=== PATIENT | female | born 1940 | race Caucasian/White ===

== ENCOUNTER 2021-11-17 08:12 | Day surgery (SDC) | payer MEDICARE ==
[2021-11-15 16:47] VITALS: BMI 32.0
--- NOTE | 2021-11-16 12:12 | P.HPOR ---
History of Present Illness H&P Date: 11/16/21 Chief Complaint: Left knee pain The patient is an 81-year-old female who presents with left knee pain after an injury 10/01/2021. She is having persistent medial and anterior pain with any weightbearing activities. She's been limping and notes her knee feels unstable. She tried medications in addition to a previous injection without much relief. Review of Systems As per HPI Past Medical History Past Medical History: Cancer, CVA/TIA, Hypertension, Osteoarthritis (OA) Additional Past Medical History / Comment(s): steroid injection August 2021,hx CVA 2016-NO RESIDUAL,breast CA-radiation History of Any Multi-Drug Resistant Organisms: None Reported Past Surgical History: Breast Surgery Additional Past Surgical History / Comment(s): lt breast lumpectomy,lt mastectomy Past Anesthesia/Blood Transfusion Reactions: No Reported Reaction Additional Past Anesthesia/Blood Transfusion Reaction / Comment(s): no hx blood transfusion Smoking Status: Never smoker - Past Family History Mother Family Medical History: No Reported History Father Family Medical History: Cancer Additional Family Medical History / Comment(s): lung Medications and Allergies Home Medications Medication Instructions Recorded Confirmed Type ALPRAZolam [Xanax] 2 mg PO HS 11/15/21 11/15/21 History Acetaminophen [Tylenol Extra 500 - 1,000 mg PO Q6H PRN 11/15/21 11/15/21 History Strength] Ascorbic Acid [Vitamin C] 1,000 mg PO DAILY 11/15/21 11/15/21 History Calcium Carbonate [Calcium] 1,200 mg PO DAILY 11/15/21 11/15/21 History Cholecalciferol [Vitamin D3 (25 100 mcg PO DAILY 11/15/21 11/15/21 History Mcg = 1000 Iu)] Clopidogrel [Plavix] 75 mg PO DAILY 11/15/21 11/15/21 History Cyanocobalamin (Vitamin B-12) 1,000 mcg PO DAILY 11/15/21 11/15/21 History [Vitamin B-12] Lisinopril-Hctz 10-12.5 mg 1 tab PO QAM 11/15/21 11/15/21 History [Zestoretic 10-12.5] Mirabegron [Myrbetriq] 50 mg PO HS 11/15/21 11/15/21 History Pravastatin Sodium [Pravachol] 10 mg PO HS 11/15/21 11/15/21 History Vitamin E (Dl,Tocopheryl Acet) 400 unit PO DAILY 11/15/21 11/15/21 History [Vitamin E (400 Iu = 180 mg)] atenoloL [Tenormin] 50 mg PO QAM 11/15/21 11/15/21 History Allergies Allergy/AdvReac Type Severity Reaction Status Date / Time adhesive tape Allergy tears Verified 11/15/21 17:23 skin-Please use paper tape Physical Examination - Knee left Effusion grade: grade 1 Tenderness with palpation: medial Gait: limping ROM: extension: -10 degrees ROM: flexion: 100 degrees Strength: extension: 5/5 Strength: flexion: 5/5 Meniscal tests: medial meniscal tests: positive Results The patient is a well-developed well-nourished female with proximal a 5 foot 2, 175 pounds of endomorphic habitus. HEENT exam is nonfocal, neck is supple. She has painless passive motion of her left hip. Straight leg raise is negative. Her distal neurovascular status appears intact left lower extremity. - Diagnostic results Knee MRI: image reviewed (MRI of the left knee shows evidence of a posterior medial meniscal tear) Assessment and Plan Assessment: Left knee symptomatic medial meniscal tear Left knee moderate medial compartment osteoarthrosis History of TIA on anticoagulation Plan: I talked with the patient length regarding her condition along with treatment options. At this point she is having pain and mechanical symptoms despite conservative measures after an acute injury. After thorough discussion shaft proceed with surgery. We'll plan to proceed with left knee arthroscopy with probable partial medial meniscectomy. We will likely perform that as an outpatient procedure. We will likely reinstitute her Plavix postoperatively. Time with Patient: Less than 30
[~2021-11-17 08:12] MED LIST: DEXAMETHASONE SOD PHOSPHATE 4 MG/ML 1 ML VIAL IV ONE; LACTATED RINGERS 1,000 ML IV SCH; MIDAZOLAM 2 MG/2 ML VIAL IV PRN; ONDANSETRON 4 MG/2 ML VIAL IVP ONE
[2021-11-17] MEDS ORDERED: fentaNYL (PF) 50 MCG/ML 2 ML AMP ONE (09:21)
[2021-11-17] MEDS ORDERED: LIDOCAINE 2% INJ 20 MG/ML (2 ML VIAL) ONE (09:21)
[2021-11-17] MEDS ORDERED: GLYCOPYRROLATE 0.2 MG/ML 2 ML VIAL ONE (09:21)
[2021-11-17] MEDS ORDERED: PROPOFOL 10 MG/ML 20 ML VIAL IV ONE (09:21)
[2021-11-17] MEDS ORDERED: EPINEPHrine (PF) 1 ML in SODIUM CHLORIDE 0.9% IRRIGATIO 3,000 ML IRRIGATION ONE ×4 (09:45)
--- NOTE | 2021-11-17 10:11 | P.OP ---
Date of Procedure: 11/17/21 Preoperative Diagnosis: Left knee internal derangement Postoperative Diagnosis: Left knee posterior medial meniscal tear Procedure(s) Performed: Left knee arthroscopic partial medial meniscectomy Anesthesia: YENIA Surgeon: Luigi Campos Estimated Blood Loss (ml): 10 Pathology: none sent Condition: stable Disposition: PACU Indications for Procedure: The patient is an 81-year-old female presents with progressive left knee pain after a recent injury despite attempted conservative measures. A discussion of the risks and benefits of operative intervention versus continued conservative measures was made with patient. She opted to proceed with surgery. Operative risks to include infection, neurovascular injury, development of blood clots, possible incomplete resolution of symptoms, possible worsening of symptoms and need for subsequent procedures was discussed. Informed consent was obtained. Operative Findings: As below Description of Procedure: The patient was brought to the operating room, and after induction of general anesthesia examined the left knee. Collaterals were stable, Sherry was negative, and posterior drawer was negative. The left lower extremity was prepped and draped in a normal fashion. A superior lateral portal was made through a 3 mm skin incision superior and lateral to the patella. This was used for outflow. A lateral portal was made through a 5 mm vertical skin incision lateral to the patella tendon above the joint line. Diagnostic arthroscopy was performed. On inspection of the medial compartment, a macerated tear involving the posterior horn of the medial meniscus in the white-red junction was noted. This was debrided back to stable base with straight baskets and a motorized shaver. Corresponding grade 2/3 chondral changes were noted involving the medial compartment. On inspection of the notch, the anterior cruciate ligament appeared to be intact. On inspection of the lateral compartment, no significant meniscal or cartilage pathology was noted. On inspection of the patellofemoral articulation, there is chondral fibrillation however no loose chondral fragments. The gutters were clear debris. The knee was then thoroughly irrigated. The portals were closed with Steri-Strips. A sterile dressing was applied in addition to a compression stocking. The patient was awoken from general anesthesia and transferred to recovery room in good condition. Blood loss was estimated at 10 mL. No complications were incurred.
[2021-11-17 10:17] VITALS: TEMP 98
[2021-11-17] MEDS: HYDROmorphone 0.5 MG/0.5 ML SYRINGE IVP PRN ×3 (10:18→10:58)
[2021-11-17 11:37] VITALS: RESP 18
[2021-11-17] MEDS ORDERED: hydrALAZINE HCL 20 MG/ML 1 ML VIAL ONE (12:05)
[2021-11-17] MEDS ORDERED: hydrALAZINE HCL 20 MG/ML 1 ML VIAL IVP ONE (12:08)
[2021-11-17 12:31] VITALS: BP 147/58; PULSE 75
== END 2021-11-17 12:48 | disposition home or self-care (01) ==
LOC: OR 08:12
PROVIDERS: ATTEND Orthopaedic Surgery
DX: S83.242A Other tear of medial meniscus, current injury, left knee, initial encounter (principal); M17.12 Unilateral primary osteoarthritis, left knee; G45.9 Transient cerebral ischemic attack, unspecified; I10 Essential (primary) hypertension; M19.90 Unspecified osteoarthritis, unspecified site; Z90.12 Acquired absence of left breast and nipple; Z80.1 Family history of malignant neoplasm of trachea, bronchus and lung; Z79.84 Long term (current) use of oral hypoglycemic drugs; Z79.811 Long term (current) use of aromatase inhibitors; Z79.810 Long term (current) use of selective estrogen receptor modulators (SERMs); Z79.899 Other long term (current) drug therapy; X58.XXXA Exposure to other specified factors, initial encounter
CPT/HCPCS: 29881; J0360; J1100; J0690; J2405; J0171; J3010; J2704; J1170; J2001

== ENCOUNTER → 2023-01-22 | Outpatient (CLI) | payer MEDICARE ==
--- NOTE | 2023-01-23 11:14 | CA ---
Transthoracic Echo Report Name: Kaley Wood Age: 82 Gender: F : 1940 Exam Date: 01/22/2023 14:20 Exam Location: [facility] Ht (in): 62 Wt (lb): 171 Ordering Physician: Cuba Carrizales MD Attending/Referring Phys: Cuba Carrizales MD Pruner Daria Rene [facility] Procedure CPT: Indications: I48.91 UNSPECIFIED ATRIAL FIBRILLATION Cardiac Hx: Technical Quality: Fair Contrast 1: Total Dose (mL): Contrast 2: Total Dose (mL): MEASUREMENTS (Male / Female) Normal Values 2D ECHO LV Diastolic Diameter PLAX 4.1 cm 4.2 - 5.9 / 3.9 - 5.3 cm LV Systolic Diameter PLAX 2.7 cm IVS Diastolic Thickness 1.1 cm 0.6 - 1.0 / 0.6 - 0.9 cm LVPW Diastolic Thickness 1.0 cm 0.6 - 1.0 / 0.6 - 0.9 cm LV Relative Wall Thickness 0.5 LVOT Diameter 2.0 cm Ascending Aorta Diameter 2.9 cm M-MODE Aortic Root Diameter MM 2.8 cm LA Systolic Diameter MM 3.7 cm LA Ao Ratio MM 1.3 AV Cusp Separation MM 1.0 cm DOPPLER AV Peak Velocity 151.6 cm/s AV Peak Gradient 9.2 mmHg AV Mean Velocity 108.0 cm/s AV Mean Gradient 5.2 mmHg AV Velocity Time Integral 37.4 cm LVOT Peak Velocity 85.3 cm/s LVOT Peak Gradient 2.9 mmHg LVOT Velocity Time Integral 23.3 cm LVOT Stroke Volume 70.1 cm??? LVOT Stroke Volume Index 39.2 ml/m??? LVOT Cardiac Index 2548.5 cm???/min???m??? AV Area Cont Eq vti 1.9 cm??? AV Area Cont Eq pk 1.7 cm??? Mitral E Point Velocity 86.4 cm/s Mitral A Point Velocity 68.0 cm/s Mitral E to A Ratio 1.3 MV Deceleration Time 173.1 ms LV E' Lateral Velocity 7.3 cm/s Mitral E to LV E' Lateral Ratio 11.9 LV E' Septal Velocity 4.7 cm/s Mitral E to LV E' Septal Ratio 18.2 TR Peak Velocity 290.7 cm/s TR Peak Gradient 33.8 mmHg Right Atrial Pressure 3.0 mmHg Pulmonary Artery Systolic Pressu 36.8 mmHg Right Ventricular Systolic Press 36.8 mmHg FINDINGS Left Ventricle Mildly increased septal wall thickness. Mildly increased posterior wall thickness. Left ventricular cavity size normal. Normal left ventricular systolic function with no obvious regional wall motion abnormalities. Left ventricular ejection fraction is estimated at 55-60%. Right Ventricle Mild right ventricular dilatation. Mild pulmonary hypertension. Right Atrium Mild right atrial dilatation. Left Atrium Mild left atrial dilatation. Mitral Valve Mitral valve thickened. Mild to moderate mitral regurgitation. Aortic Valve Trileaflet aortic valve. Diffuse thickening of the aortic valve cusps with reduced excursion. Aortic valve sclerosis. Mild aortic regurgitation. Tricuspid Valve Structurally normal tricuspid valve. Mild tricuspid regurgitation. Pulmonic Valve Pulmonic valve not well visualized. Tnxv-lb-syxmaocv pulmonic regurgitation. Pericardium No pericardial effusion. Aorta Normal size aortic root and proximal ascending aorta. CONCLUSIONS Normal LV systolic function Rjac-oz-dlzbdjyj mitral regurgitation Aortic sclerosis with mild aortic insufficiency Previewed by: Dr. Connor Pino MD (Electronically Signed) Final Date: 23 January 2023 11:13
== END | disposition home or self-care (01) ==
LOC: RADECHMAIN 14:15
PROVIDERS: ATTEND Family Medicine
DX: I08.0 Rheumatic disorders of both mitral and aortic valves (principal); I48.91 Unspecified atrial fibrillation
CPT/HCPCS: 93306

== ENCOUNTER 2023-02-14 09:31 | Inpatient (IN) | payer MEDICARE ==
[~2023-02-14 09:31] MED LIST changes: -DEXAMETHASONE SOD PHOSPHATE 4 MG/ML 1 ML VIAL IV ONE; -LACTATED RINGERS 1,000 ML IV SCH; -MIDAZOLAM 2 MG/2 ML VIAL IV PRN; -ONDANSETRON 4 MG/2 ML VIAL IVP ONE; +ceFAZolin 1 GM in SODIUM CHLORIDE 0.9% IRRIG BTL 250 ML IRRIGATION PRN
[2023-02-14] MEDS: SODIUM CHLORIDE 0.9% 1,000 ML IV SCH ×3 (10:10→19:06)
[2023-02-14 11:45] LABS: Basophils % (A) 0 %; Eosinophils # (A) 0.1 k/uL (0-0.7); Eosinophils % (A) 2 %; HCT 43.8 % (34.0-46.0); HGB 14.8 gm/dL (11.4-16.0); Lymphocytes # (A) 1.2 k/uL (1.0-4.8); Lymphocytes % (A) 20 %; MCH 30.2 pg (25.0-35.0); MCHC 33.9 g/dL (31.0-37.0); MCV 89.1 fL (80.0-100.0); Mean Platelet Volume 7.6; Monocytes # (A) 0.3 k/uL (0-1.0); Monocytes % (A) 5 %; Neutrophils # (A) 4.3 k/uL (1.3-7.7); Neutrophils % (A) 70 %; Platelet Count 162 k/uL (150-450); RBC 4.92 m/uL (3.80-5.40); WBC 6.1 k/uL (3.8-10.6)
[2023-02-14 11:59] LABS: African American GFR (CKD) >90 (>60 ml/min/1.73 sqM); Anion Gap 8 mmol/L; Blood Urea Nitrogen 15 mg/dL (7-17); Calcium 9.4 mg/dL (8.4-10.2); Carbon Dioxide 29 mmol/L (22-30); Chloride 102 mmol/L (98-107); Glucose 95 mg/dL (74-99); Non-African American GFR(CKD) 80 (>60 ml/min/1.73 sqM); Potassium 3.9 mmol/L (3.5-5.1); Sodium 139 mmol/L (137-145)
[2023-02-14] MEDS ORDERED: IOPAMIDOL-370 100ML BTL IVP ONE (15:25)
[2023-02-14] MEDS ORDERED: MIDAZOLAM 2 MG/2 ML VIAL IVP ONE (15:32)
[2023-02-14] MEDS: fentaNYL (PF) 50 MCG/ML 2 ML AMP IVP ONE ×2 (15:32→15:58)
[2023-02-14] MEDS ORDERED: LIDOCAINE 1% INJ 10MG/ML (20 ML MDV) SQ ONE (15:39)
[2023-02-14] MEDS: MIDAZOLAM 2 MG/2 ML VIAL IVP ONE ×2 (15:58→16:41)
[2023-02-14] MEDS ORDERED: hydrALAZINE HCL 20 MG/ML 1 ML VIAL IV ONE (16:37)
[2023-02-14 17:05] LABS: Glucose,Whole Blood 109 mg/dL (70-110)
[2023-02-14] MEDS ORDERED: NOREPINEPHRINE 4 MG in SODIUM CHLORIDE 0.9% 250 ML IV ONE (17:20)
[2023-02-14 17:46] LABS: Basophils % (A) 0 %; Eosinophils % (A) 1 %; HCT 38.5 % (34.0-46.0); HGB 13.2 gm/dL (11.4-16.0); Lymphocytes # (A) 1.1 k/uL (1.0-4.8); Lymphocytes % (A) 35 %; MCH 30.8 pg (25.0-35.0); MCHC 34.4 g/dL (31.0-37.0); MCV 89.5 fL (80.0-100.0); Mean Platelet Volume 9.3; Monocytes # (A) 0.1 k/uL (0-1.0); Monocytes % (A) 2 %; Neutrophils # (A) 1.8 k/uL (1.3-7.7); Neutrophils % (A) 60 %; RDW 12.9 % (11.5-15.5)
[2023-02-14] MEDS ORDERED: ACETAMINOPHEN TAB 500 MG TAB PO PRN (18:10)
[2023-02-14 18:30] LABS: Platelet Count 5 k/uL (150-450)
[2023-02-14] MEDS: atenoloL 50 MG TAB PO SCH ×2 (19:03→21:54)
[2023-02-14] MEDS: LISINOPRIL-HCTZ 20-12.5 MG 1 EACH TAB PO SCH ×2 (19:03→21:54)
[2023-02-14] MEDS ORDERED: hydrALAZINE HCL 20 MG/ML 1 ML VIAL IVP PRN (19:41)
--- NOTE | 2023-02-14 19:45 | XR ---
EXAMINATION TYPE: XR chest 1V portable DATE OF EXAM: 02/14/2023 Comparison: None Clinical History: 82-year-old female Lead placement check Findings: Right anterior chest wall pacemaker generator with right atrial and right ventricular leads. Left bas ilar catheter noted. Heart upper limits of normal in size. Mild interstitial density. No consolidatio n or pleural effusion. Impression: Mild to moderate interstitial density could reflect bronchitis or asthma. No focal infiltrate seen. S ome type of catheter, possible pleural catheter at the left base. Clinically correlate.
[2023-02-14] MEDS ORDERED: ONDANSETRON 4 MG/2 ML VIAL IVP PRN (19:56)
[2023-02-14 20:07] LABS: HCT 45.3 % (34.0-46.0); HGB 15.6 gm/dL (11.4-16.0); MCH 30.7 pg (25.0-35.0); MCHC 34.5 g/dL (31.0-37.0); MCV 88.9 fL (80.0-100.0); RDW 12.9 % (11.5-15.5); WBC 12.4 k/uL (3.8-10.6)
[2023-02-14 20:09] LABS: Platelet Count 158 k/uL (150-450)
[2023-02-14] MEDS: NON FORMULARY DRUG (Mirabegron [Myrbetriq] 50 MG Tab.Er.24h) PO SCH (20:27)
--- NOTE | 2023-02-14 20:48 | P.PCN ---
Description of Procedure: CARDIOLOGY PROCEDURE NOTE Outdoor Education Teacher: Dr. Ashwin Zheng Procedure performed: Insertion dual chamber permanent pacemaker Site: Right subclavian Indications: Sick Sinus Syndrome, Paroxysmal Afib with pauses > 5 seconds Complications: Pericardial effusion Blood Loss: 200cc Description of Procedure: After the risks, benefits, and alternatives of the above-mentioned procedure was explained in detail with the patient, informed consent was obtained. Patient had prior left mastectomy and therefore right approach was recommended. The patient was taken to the cardiac catheterization suite where the right subclavian area was sterily prepped and draped in the usual fashion. One percent lidocaine was used to anesthetize the right subclavian area. Twenty milliliters of Isoview 370 contrast was injected into the right antecubital vein to allow for direct visualization of the right subclavian vein under fluoroscopy. A 1.5 inch incision was made utilizing a #15 blade in the right subclavian site. Hemostasis was made complete. Electrocautery along with digital blunt dissection was utilized to dissect to the level of the pectoralis muscle fascia and create a pocket large enough to accommodate the generator. A thin walled micro puncuture needle was used to cannulate the right subclavian vein. A guide-wire was inserted through the needle into the vascular lumen under fluoroscopic guidance. The needle was removed. Another thin walled micr puncture needle was used to again cannulate the right subclavian vein. A guide-wire was inserted through the needle into the vascular lumen under fluoroscopic guidance. The needle was removed and both guide-wires were attached to the field. A venous sheath and dilator were advanced over the guidewire into the vascular lumen under fluoroscopic guidance. The dilator and guidewire were then removed. A right ventricular bipolar lead was inserted into the sheath and advanced under fluoroscopic guidance into the right ventricle under fluoroscopic guidance. Adequate sensing and pacing thresholds were achieved and the lead was screwed into place in the RV apex. The sheath was then torn away. The lead collar was advanced and anchored into place utilizing #0 silk suture. Next, another venous sheath and dilator were advanced under fluoroscopic guidance into the vascular lumen over the guidewire. After removal of the dilator and guidewire, a right atrial bipolar lead was inserted into this sheath and advanced under fluoroscopic guidance into the right atrium. The lead was p ositioned into the right atrial appendage. Adequate sensing and pacing thresholds were then achieved with patient being in Aflutter at the time and the lead was screwed into place. The sheath was then torn away. The lead collar was advanced and anchored into place utilizing #0 silk suture. The leads were then inserted into the appropriate position into the generator. They were then secured with the setscrew provided. The leads and generator were inserted into the pocket with the leads posterior. The subcutaneous tissue was approximated utilizing #2.0 and 3.0 vicryl in an interrupted stitch fashion. The dermal layer was approximated utilizing #4.0 vicryl. The area was cleansed with sterile saline and dried. A sterile 4x4 dressing was applied. Patient had been complaining of some atypical chest pain throughout the case and eventually became more short of breath and blood pressure was initially elevated and was given Hydralazine. Some of symptoms thought related to anxiety with p atient requiring Xanax 2mg before bed each night however blood pressure slowly began dropping and patient complaining of increasing shortness of breath. Therefore bedside echo was performed which showed new pericardial effusion with tamponade physiology. This was occuring as the pocket was closed. Therefore the subxiphoid area was prepped and draped in sterile fashion. The subxiphoid area was anesthetized with 2% Lidocaine. Next using an 18G needle and ultrasound guidance, the pericardial space was accessed and a 0.035 wire was advanced. Next a pigtail drain was placed and approximately 150cc of blood was removed. Repeat echo showed improved effusion and this appeared stable after approximately 30 minutes with no more blood return. Patient's blood pressure had initially dropped to 80/50's and this improved with pericardiocentesis. The pericardial drain was left in place. The patient was transferred to the ICU in stable and satisfactory condition. Generator Data Computer Builder: [employer] Brand: [id number] Bailee XT DR MRI Model #: [id number] Serial#: [id number] Right Atrial Bipolar Lead Data: Type: Active fixation lead Computer Builder: [employer] Access Model#: 5076-45 Serial Number: [id number] Right Ventricular Bipolar Lead Data: Type: Active fixation lead Computer Builder: [employer] Access Model #: 5076-52 Serial #: [id number] Stimulation Thresholds: Right atrial bipolar lead pacing and sensing thresholds Voltage: 0.75 Impedance: 836 ohms P-wave sensin.1 mV Right Ventricular bipolar lead pacing and sensing thresholds Pulse Width: 0.4ms Voltage: 0.5 volts Impedance: 817 ohms R-wave sensin.6 mV Parameter Setting: Pacing mode is AAIR<=>DDDR Lower rate 60 bpm Upper rate 130 bpm Impressions: 1. Successful implantation of a dual chamber permanent pacemaker in the right pectoral site. 2. Complication of pericardial effusion, s/p pericardiocentesis and pericardial drain placement Plan: 1. Routine post procedure care will be instituted 2. Monitor drain output and recheck echo in AM
[2023-02-14] MEDS ORDERED: SODIUM CHLORIDE 0.9% 1,000 ML IV ONE (21:55)
[2023-02-14] MEDS: PRAVASTATIN SODIUM 20 MG TAB PO SCH (22:04)
[2023-02-14] MEDS ORDERED: NOREPINEPHRINE 4 MG in SODIUM CHLORIDE 0.9% 250 ML IV SCH (22:30)
[2023-02-14] MEDS ORDERED: HYDROmorphone 0.5 MG/0.5 ML SYRINGE IVP PRN (22:34)
[2023-02-14 23:00] LABS: Basophils % (A) 0 %; Eosinophils % (A) 0 %; HCT 47.9 % (34.0-46.0); HGB 15.8 gm/dL (11.4-16.0); Lymphocytes # (A) 0.6 k/uL (1.0-4.8); Lymphocytes % (A) 4 %; MCH 30.5 pg (25.0-35.0); MCHC 33.1 g/dL (31.0-37.0); MCV 92.3 fL (80.0-100.0); Mean Platelet Volume 7.9; Monocytes # (A) 0.6 k/uL (0-1.0); Monocytes % (A) 4 %; Neutrophils # (A) 14.8 k/uL (1.3-7.7); Neutrophils % (A) 92 %; Platelet Count 175 k/uL (150-450); RBC 5.18 m/uL (3.80-5.40); RDW 13.1 % (11.5-15.5); WBC 16.1 k/uL (3.8-10.6)
--- NOTE | 2023-02-14 23:09 | CA ---
Transthoracic Echo Report Name: Kaley Wood Age: 82 Gender: F : 1940 Exam Date: 02/14/2023 17:05 Exam Location: [facility] Ht (in): Wt (lb): Ordering Physician: Ashwin Zheng DO ([email or web address]) Attending/Referring Phys: Triage Assistant Heather Garber RDCS Procedure CPT: Indications: re: SOB, s/p PPM Cardiac Hx: Technical Quality: Fair Contrast 1: Total Dose (mL): Contrast 2: Total Dose (mL): MEASUREMENTS (Male / Female) Normal Values FINDINGS Left Ventricle Stat Echo done in school laboratory technician to evaluate effusion. Right Ventricle Right Atrium Left Atrium Mitral Valve Aortic Valve Tricuspid Valve Pulmonic Valve Pericardium Moderate pericardial effusion with tamponade physiology Aorta CONCLUSIONS Moderate pericardial effusion with tamponade physiology Previewed by: Dr. Ashwin Zheng DO (Electronically Signed) Final Date: 14 February 2023 23:08
[2023-02-14 23:12] LABS: ALT 19 U/L (4-34); AST 29 U/L (14-36); African American GFR (CKD) >90 (>60 ml/min/1.73 sqM); Albumin 4.1 g/dL (3.5-5.0); Alkaline Phosphatase 58 U/L (38-126); Anion Gap 15 mmol/L; Blood Urea Nitrogen 14 mg/dL (7-17); Calcium 8.5 mg/dL (8.4-10.2); Carbon Dioxide 19 mmol/L (22-30); Chloride 105 mmol/L (98-107); Glucose 119 mg/dL (74-99); Non-African American GFR(CKD) 84 (>60 ml/min/1.73 sqM); Potassium 3.3 mmol/L (3.5-5.1); Sodium 139 mmol/L (137-145); Total Bilirubin 1.2 mg/dL (0.2-1.3); Total Protein 6.7 g/dL (6.3-8.2)
[2023-02-14 23:19] LABS: NT-Pro-B-Type Natriuretic Pept 1610 pg/mL
--- NOTE | 2023-02-14 23:21 | XR ---
EXAM: XR Chest, 1 View CLINICAL HISTORY: ITS.REASON XR Reason: SOB TECHNIQUE: Frontal view of the chest. COMPARISON: Chest x-ray 7:11 PM, same day. FINDINGS: Lungs: Minimal left lower lobe atelectasis or infiltrate, new. No consolidation. Pleural space: No pneumothorax. Heart: Stable pacemaker and mild to moderate cardiomegaly. Mediastinum: Unremarkable. Bones/Soft Tissues: No acute abnormality. Tubes/Lines: Some type of catheter in the substernal region extending to the left, overlying the heart border, fairly stable. IMPRESSION: 1. Minimal left lower lobe atelectasis or infiltrate. 2. Stable catheter overlying the left lower chest.
[2023-02-14] MEDS ORDERED: MAG HYDROX/AL HYDROX/SIMETH 30 ML, HYOSCYAMINE ELIXIR 10 ML PO PRN ×2 (23:40)
[2023-02-14] MEDS ORDERED: Potassium Replacement Protocol 1 EACH MISC MISCELLANE PRN (23:40)
[2023-02-14] MEDS ORDERED: METOCLOPRAMIDE 5 MG/ML 2 ML VIAL IVP PRN (23:40)
[2023-02-15] MEDS ORDERED: POTASSIUM BICARBONATE/CIT AC 20 MEQ TABLET.EFF NG-TUBE SCH
[2023-02-15] MEDS: ACETAMINOPHEN TAB 325 MG TAB PO PRN ×2 (00:07→18:00)
[2023-02-15] MEDS: POTASSIUM CHLORIDE ER 20 MEQ TAB.ER PO SCH ×2 (00:10→02:49)
[2023-02-15] MEDS: ALPRAZolam 1 MG TAB PO SCH ×2 (00:12→19:45)
[2023-02-15] MEDS: SODIUM CHLORIDE 0.9% 1,000 ML IV SCH (02:46)
[2023-02-15 05:35] LABS: Basophils % (A) 0 %; Eosinophils # (A) 0.1 k/uL (0-0.7); Eosinophils % (A) 1 %; HCT 44.8 % (34.0-46.0); Lymphocytes # (A) 0.6 k/uL (1.0-4.8); Lymphocytes % (A) 4 %; MCH 30.5 pg (25.0-35.0); MCHC 33.4 g/dL (31.0-37.0); MCV 91.3 fL (80.0-100.0); Mean Platelet Volume 7.9; Monocytes # (A) 0.7 k/uL (0-1.0); Monocytes % (A) 4 %; Neutrophils # (A) 15.5 k/uL (1.3-7.7); Neutrophils % (A) 91 %; Platelet Count 188 k/uL (150-450); RBC 4.91 m/uL (3.80-5.40); RDW 13.2 % (11.5-15.5); WBC 17.1 k/uL (3.8-10.6)
[2023-02-15 05:52] LABS: ALT 20 U/L (4-34); AST 30 U/L (14-36); African American GFR (CKD) 89 (>60 ml/min/1.73 sqM); Albumin 3.9 g/dL (3.5-5.0); Alkaline Phosphatase 66 U/L (38-126); Anion Gap 14 mmol/L; Blood Urea Nitrogen 17 mg/dL (7-17); Calcium 8.5 mg/dL (8.4-10.2); Carbon Dioxide 22 mmol/L (22-30); Chloride 103 mmol/L (98-107); Glucose 142 mg/dL (74-99); Magnesium 1.6 mg/dL (1.6-2.3); Non-African American GFR(CKD) 77 (>60 ml/min/1.73 sqM); Potassium 4.1 mmol/L (3.5-5.1); Sodium 139 mmol/L (137-145); Total Bilirubin 1.5 mg/dL (0.2-1.3); Total Protein 6.5 g/dL (6.3-8.2)
[2023-02-15] MEDS ORDERED: Magnesium Replacement Protocol 1 EACH MISC MISCELLANE PRN (06:22)
[2023-02-15] MEDS: MAGNESIUM SULFATE-D5W PMX 1 GM in DEXTROSE/WATER 1 100ML.BAG IVPB SCH ×2 (06:41→08:11)
[2023-02-15] MEDS: LISINOPRIL-HCTZ 20-12.5 MG 1 EACH TAB PO SCH (08:00)
[2023-02-15] MEDS: atenoloL 50 MG TAB PO SCH (09:00)
[2023-02-15] MEDS: CHOLECALCIFEROL 25 MCG (1000 IU) TABLET PO SCH (10:57)
[2023-02-15] MEDS: CALCIUM CARBONATE 500 MG CHEWABLE PO SCH (10:58)
[2023-02-15] MEDS: PRAVASTATIN SODIUM 20 MG TAB PO SCH (19:45)
[2023-02-15] MEDS: NON FORMULARY DRUG (Mirabegron [Myrbetriq] 50 MG Tab.Er.24h) PO SCH (20:11)
--- NOTE | 2023-02-15 20:49 | P.PN ---
Subjective HISTORY OF PRESENTING ILLNESS Patient is a pleasant 82-year-old female with history of hypertension, hyperlipidemia, TIA, paroxysmal atrial fibrillation and tachybradycardia syndrome with sick sinus syndrome and recent monitor showing greater than 5 second pauses. She follows with Dr. Larkin. She therefore was recommended to undergo outpatient dual chamber pacemaker which was performed 02/14 however she had complications of developing chest pain and shortness breath with initial hypertension systolics in the 180s and decreased down into the 90s. Therefore intraprocedural transthoracic echo showed pericardial effusion and pericardiocentesis was performed with pericardial drain placed. Approximately 250 mL of blood was taken off with improvement in blood pressure. Drain was left in place however without any significant bleeding. Cardiology was paged secondary to continued chest pain and patient reevaluated in approximately 10 PM last night with bedside echo showing no significant reaccumulation of pericardial effusion. Therefore the pericardial drain was pulled. After pulling the drain patient felt much better. On 02/15 she denies any chest pain or pressure. She is tolerating diet. She has mild dyspnea and is on 2 L. B lood work performed yesterday shows white blood cell count 16.1, lactic acid 2.1, troponin 0.386. ProBNP 1610. White blood cell count today 17.1. She denies any fevers or chills. She does have frequent UTIs however no current dysuria. PHYSICAL EXAMINATION Vital signs reviewed. CONSTITUTIONAL: No apparent distress. HEENT: Head is normocephalic. Pupils are equal, round. Sclerae anicteric. Mucous membranes of the mouth are moist. No JVD. No carotid bruit. CHEST EXAMINATION: Lungs are clear to auscultation. No chest wall tenderness is noted on palpation or with deep breathing. HEART EXAMINATION: Regular rate and rhythm. S1, S2 heard. No murmurs, gallops or rub. ABDOMEN: Soft, nontender. Positive bowel sounds. EXTREMITIES: 2+ peripheral pulses, no lower extremity edema and no calf tend erness. NEUROLOGIC EXAMINATION: Patient is awake, alert and oriented x3. ASSESSMENT 1. Tachybradycardia syndrome, > than 5 second pauses while in A. fib 2. Status post dual-chamber permanent pacemaker 3. Pericardial effusion, complication related to pacemaker implantation status post pericardial drain and pericardial drain removal 4. Hypertension 5. Elevated troponin related to pericardial effusion 6. Lactic acidosis 7. Hypotension, related to cardiac Non-improved 8. Leukocytosis likely reactive 9. Frequent UTIs PLAN Patient unfortunately complication of pericardial effusion however this was treated appropriately with pericardial drain. The pericardial drain has been removed with no reaccumulation of effusion. Continue current supportive care. Continue to hold anticoagulation. Chest pain, elevated troponins, shortness breath appear improving. Okay for transfer from ICU. Likely discharge in 24 hours if no significant change clinically. Objective - Vital Signs Vital signs: Vital Signs Temp 97.8 F 02/15/23 19:49 Pulse 70 02/15/23 19:49 Resp 14 02/15/23 19:49 BP 130/74 02/15/23 19:49 Pulse Ox 95 02/15/23 19:49 FiO2 Intake & Output 02/15/23 02/15/23 02/16/23 06:59 18:59 06:59 Intake Total 100 940 10 Output Total 1100 300 Balance -1000 640 10 Weight 85.2 kg Intake: IV 100 220 10 Invasive Line 1 20 10 Magnesium Sulfate-D5w Pmx 200 1 gm In Dextrose/Water 1 100ml.bag @ 100 mls/hr IVPB Q1H ADRIENNE Rx#: [id number] Sodium Chloride 0.9% 1, 100 000 ml @ 50 mls/hr IV . Q20H ADRIENNE Rx#:[id number] Oral 720 Output: Urine 1050 300 Emesis 50 Other: Voiding Method Bedpan Bedside Commode Toilet # Voids 0 0 # Bowel Movements 1 0 - Labs CBC & Chem 7: 02/15/23 05:12 02/15/23 05:12 Labs: Abnormal Lab Results - Last 24 Hours (Table) 02/14/23 02/14/23 02/14/23 Range/Units 22:36 22:36 22:36 WBC 16.1 H (3.8-10.6) k/uL Hct 47.9 H (34.0-46.0) % Neutrophils # 14.8 H (1.3-7.7) k/uL Lymphocytes # 0.6 L (1.0-4.8) k/uL Potassium 3.3 L (3.5-5.1) mmol/L Carbon Dioxide 19 L (22-30) mmol/L Glucose 119 H (74-99) mg/dL Plasma Lactic Acid Juancho 2.1 H* (0.7-2.0) mmol/L Total Bilirubin (0.2-1.3) mg/dL Troponin I (0.000-0.034) ng/mL 02/15/23 02/15/23 02/15/23 Range/Units 00:03 05:12 05:12 WBC 17.1 H (3.8-10.6) k/uL Hct (34.0-46.0) % Neutrophils # 15.5 H (1.3-7.7) k/uL Lymphocytes # 0.6 L (1.0-4.8) k/uL Potassium (3.5-5.1) mmol/L Carbon Dioxide (22-30) mmol/L Glucose 142 H (74-99) mg/dL Plasma Lactic Acid Juancho (0.7-2.0) mmol/L Total Bilirubin 1.5 H (0.2-1.3) mg/dL Troponin I 0.386 H* (0.000-0.034) ng/mL 02/15/23 Range/Units 05:12 WBC (3.8-10.6) k/uL Hct (34.0-46.0) % Neutrophils # (1.3-7.7) k/uL Lymphocytes # (1.0-4.8) k/uL Potassium (3.5-5.1) mmol/L Carbon Dioxide (22-30) mmol/L Glucose (74-99) mg/dL Plasma Lactic Acid Juancho 2.4 H* (0.7-2.0) mmol/L Total Bilirubin (0.2-1.3) mg/dL Troponin I (0.000-0.034) ng/mL
[2023-02-16 06:01] LABS: Basophils % (A) 0 %; Eosinophils # (A) 0.1 k/uL (0-0.7); Eosinophils % (A) 1 %; HCT 39.2 % (34.0-46.0); HGB 12.9 gm/dL (11.4-16.0); Lymphocytes # (A) 1.4 k/uL (1.0-4.8); Lymphocytes % (A) 16 %; MCHC 32.9 g/dL (31.0-37.0); MCV 91.2 fL (80.0-100.0); Mean Platelet Volume 8.3; Monocytes # (A) 0.5 k/uL (0-1.0); Monocytes % (A) 6 %; Neutrophils # (A) 6.9 k/uL (1.3-7.7); Neutrophils % (A) 76 %; Platelet Count 128 k/uL (150-450); RDW 13.2 % (11.5-15.5); WBC 9.1 k/uL (3.8-10.6)
[2023-02-16 06:36] LABS: ALT 16 U/L (4-34); AST 27 U/L (14-36); African American GFR (CKD) 88 (>60 ml/min/1.73 sqM); Albumin 3.4 g/dL (3.5-5.0); Alkaline Phosphatase 51 U/L (38-126); Anion Gap 9 mmol/L; Blood Urea Nitrogen 23 mg/dL (7-17); Calcium 8.5 mg/dL (8.4-10.2); Carbon Dioxide 26 mmol/L (22-30); Chloride 103 mmol/L (98-107); Glucose 100 mg/dL (74-99); Magnesium 2.2 mg/dL (1.6-2.3); Non-African American GFR(CKD) 76 (>60 ml/min/1.73 sqM); Potassium 3.9 mmol/L (3.5-5.1); Sodium 138 mmol/L (137-145); Total Bilirubin 1.1 mg/dL (0.2-1.3); Total Protein 5.8 g/dL (6.3-8.2)
[2023-02-16] MEDS: CHOLECALCIFEROL 25 MCG (1000 IU) TABLET PO SCH (08:19)
[2023-02-16] MEDS: CALCIUM CARBONATE 500 MG CHEWABLE PO SCH (08:19)
[2023-02-16] MEDS: atenoloL 50 MG TAB PO SCH (08:19)
[2023-02-16 08:52] VITALS: TEMP 98.3
[2023-02-16] MEDS ORDERED: atenoloL 50 MG TAB PO STA (09:40)
--- NOTE | 2023-02-16 09:40 | P.PN ---
Subjective HISTORY OF PRESENTING ILLNESS Patient is a pleasant 82-year-old female with history of hypertension, hyperlipidemia, TIA, paroxysmal atrial fibrillation and tachybradycardia syndrome with sick sinus syndrome and recent monitor showing greater than 5 second pauses. She follows with Dr. Larkin. She therefore was recommended to undergo outpatient dual chamber pacemaker which was performed 02/14 however she had complications of developing chest pain and shortness breath with initial hypertension systolics in the 180s and decreased down into the 90s. Therefore intraprocedural transthoracic echo showed pericardial effusion and pericardiocentesis was performed with pericardial drain placed. Approximately 250 mL of blood was taken off with improvement in blood pressure. Drain was left in place however without any significant bleeding. Cardiology was paged secondary to continued chest pain and patient reevaluated in approximately 10 PM last night with bedside echo showing no significant reaccumulation of pericardial effusion. Therefore the pericardial drain was pulled. After pulling the drain patient felt much better. On 02/15 she denies any chest pain or pressure. She is tolerating diet. She has mild dyspnea and is on 2 L. B lood work performed yesterday shows white blood cell count 16.1, lactic acid 2.1, troponin 0.386. ProBNP 1610. White blood cell count today 17.1. She denies any fevers or chills. She does have frequent UTIs however no current dysuria. 02/16 Patient seen and examined. Patient states she feels much better. White blood cell count has improved. She has more of an appetite. She denies any chest pain or pressure. She did go in A. fib with RVR at approximate 7 AM and blood pressures been better and therefore her atenolol was given approximately an hour ago. PHYSICAL EXAMINATION Vital signs reviewed. CONSTITUTIONAL: No apparent distress. HEENT: Head is normocephalic. Pupils are equal, round. Sclerae anicteric. Mucous membranes of the mouth are moist. No JVD. No carotid bruit. CHEST EXAMINATION: Lungs are clear to auscultation. No chest wall tenderness is noted on palpation or with deep breathing. HEART EXAMINATION: Regular rate and rhythm. S1, S2 heard. No murmurs, gallops or rub. ABDOMEN: Soft, nontender. Positive bowel sounds. EXTREMITIES: 2+ peripheral pulses, no lower extremity edema and no calf tenderness. NEUROLOGIC EXAMINATION: Patient is awake, alert and oriented x3. ASSESSMENT 1. Tachybradycardia syndrome, > than 5 second pauses while in A. fib 2. Status post dual-chamber permanent pacemaker 3. Pericardial effusion, complication related to pacemaker implantation status post pericardial drain and pericardial drain removal 4. Hypertension 5. Elevated troponin related to pericardial effusion 6. Lactic acidosis 7. Hypotension, related to cardiac tamponade, improved 8. Leukocytosis likely reactive 9. Frequent UTIs 10. Paroxysmal A. fib PLAN Patient has recovered no further signs or symptoms of effusion. Subxiphoid site and pacemaker site clean, dry and intact. Increase atenolol to 100 mg daily and if heart rates better controlled we will discharge patient. Continue to hold anticoagulation for 1 week until seen by Dr. Larkin in office given recent hemorrhagic pericardial effusion. Objective - Vital Signs Vital signs: Vital Signs Temp 98.3 F 02/16/23 08:17 Pulse 114 H 02/16/23 08:17 Resp 16 02/16/23 08:17 BP 122/71 02/16/23 08:17 Pulse Ox 92 L 02/16/23 08:17 FiO2 Intake & Output 02/15/23 02/16/23 02/16/23 18:59 06:59 18:59 Intake Total 940 20 Output Total 300 Balance 640 20 Weight 84.7 kg Intake: IV 220 20 Invasive Line 1 20 20 Magnesium Sulfate-D5w Pmx 200 1 gm In Dextrose/Water 1 100ml.bag @ 100 mls/hr IVPB Q1H [facility] Rx#: [id number] Oral 720 Output: Urine 300 Other: Voiding Method Bedside Commode Toilet # Voids 0 1 # Bowel Movements 0 - Labs CBC & Chem 7: 02/16/23 05:27 02/16/23 05:27 Labs: Abnormal Lab Results - Last 24 Hours (Table) 02/16/23 02/16/23 Range/Units 05:27 05:27 Plt Count 128 L (150-450) k/uL BUN 23 H (7-17) mg/dL Glucose 100 H (74-99) mg/dL Total Protein 5.8 L (6.3-8.2) g/dL Albumin 3.4 L (3.5-5.0) g/dL
[2023-02-16] MEDS: LISINOPRIL-HCTZ 20-12.5 MG 1 EACH TAB PO SCH (09:48)
[2023-02-16 11:55] VITALS: BP 115/70; PULSE 120; RESP 17
--- NOTE | 2023-02-16 12:09 | CA ---
Transthoracic Echo Report Name: Kaley Wood Age: 82 Gender: F : 1940 Exam Date: 02/14/2023 23:16 Exam Location: [facility] Ht (in): Wt (lb): Ordering Physician: Ashwin Zheng DO ([email or web address]) Attending/Referring Phys: Process Developer Milind Perry Procedure CPT: Indications: re: pericardial effusion Cardiac Hx: Technical Quality: Technically difficult study Contrast 1: Total Dose (mL): Contrast 2: Total Dose (mL): MEASUREMENTS (Male / Female) Normal Values FINDINGS Left Ventricle Right Ventricle Normal right ventricular size and function. Right Atrium Left Atrium Mitral Valve Aortic Valve Tricuspid Valve Pulmonic Valve Pericardium No pericardial effusion. Aorta CONCLUSIONS Normal left ventricular ejection fraction 55-60% No residual pericardial effusion Previewed by: Dr. Ashwin Zheng DO (Electronically Signed) Final Date: 16 February 2023 12:08
--- NOTE | 2023-02-16 14:04 | P.DS ---
Providers Date of admission: 02/14/23 18:24 Attending physician: Ashwin Zheng DO Primary care physician: [facility] Hospital Course: Patient presented for elective dual chamber PPM 02/14 which was implanted however developed pericardial effusion and tamponade requiring pericardiocentesis and pericardial drain. Patient was monitored in ICU however no recurrent effusion noted. Pacemaker interrogation showed stable numbers. Patient did have intermitent Afib and Atenolol was increased to 100mg daily. Lisinopril/HCTZ was held secondary to initially borderline BP's. Her Eliquis will be held for 1 week given hemorhagic effusion. She will follow with Dr Larkin in 1 week. Plan - Discharge Summary Discharge Rx Participant: Yes New Discharge Prescriptions: New Hyoscyamine Elixir [Levsin 0.125MG/ML Drops] 10 ml PO Q6H PRN ml PRN Reason: Gi Upset atenoloL [Tenormin] 100 mg PO QAM #90 tab Continue Pravastatin Sodium [Pravachol] 10 mg PO HS ALPRAZolam [Xanax] 2 mg PO HS Acetaminophen [Tylenol Extra Strength] 500 - 1,000 mg PO Q6H PRN PRN Reason: Pain Cyanocobalamin (Vitamin B-12) [Vitamin B-12] 1,000 mcg PO DAILY Ascorbic Acid [Vitamin C] 1,000 mg PO DAILY Mirabegron [Myrbetriq] 50 mg PO HS Vitamin E (Dl,Tocopheryl Acet) [Vitamin E (400 Iu = 180 mg)] 400 unit PO DAILY Cholecalciferol [Vitamin D3 (25 Mcg = 1000 Iu)] 100 mcg PO DAILY Calcium Carbonate [Calcium] 1,200 mg PO DAILY Discontinued Lisinopril-Hctz 20-12.5 mg [Zestoretic 20-12.5] 1 tab PO QAM atenoloL [Tenormin] 50 mg PO QAM Apixaban [Eliquis] 5 mg PO BID Discharge Medication List ALPRAZolam [Xanax] 2 mg PO HS 11/15/21 [History] Acetaminophen [Tylenol Extra Strength] 500 - 1,000 mg PO Q6H PRN 11/15/21 [History] Ascorbic Acid [Vitamin C] 1,000 mg PO DAILY 11/15/21 [History] Calcium Carbonate [Calcium] 1,200 mg PO DAILY 11/15/21 [History] Cholecalciferol [Vitamin D3 (25 Mcg = 1000 Iu)] 100 mcg PO DAILY 11/15/21 [History] Cyanocobalamin (Vitamin B-12) [Vitamin B-12] 1,000 mcg PO DAILY 11/15/21 [History] Mirabegron [Myrbetriq] 50 mg PO HS 11/15/21 [History] Pravastatin Sodium [Pravachol] 10 mg PO HS 11/15/21 [History] Vitamin E (Dl,Tocopheryl Acet) [Vitamin E (400 Iu = 180 mg)] 400 unit PO DAILY 11/15/21 [History] Hyoscyamine Elixir [Levsin 0.125MG/ML Drops] 10 ml PO Q6H PRN ml 02/16/23 [Rx] atenoloL [Tenormin] 100 mg PO QAM #90 tab 02/16/23 [Rx] Activity/Diet/Wound Care/Special Instructions: Instruction following a heart rhythm device implant. 1. Keep dressing dry for 5 DAYS. You may cover the are with Saran wrap or Cling wrap prior to a shower. 2. The dressing will be removed in the Device [facility] at [facility]iology. Absorbable sutures were used to close the wound. . 3. Avoid raising the left arm above the shoulder level. 4 week restriction. 4.Avoid arm movements, like back scratching, rubbing the head, or pulling a cord. 4 week restriction. 5. Gentle range of motion movements of the shoulder, closest to the incision should be performed to avoid a frozen shoulder. 6. The opposite arm may be used freely. 7.Avoid driving for 7 days. 8.Avoid activities such as golfing,swimming,weed wacking,lifting more than 10 lbs weight,bowling, gymnastics, and weight lifting/training. (6 week restriction) 9. Activities such as wood chopping with an axe, pull ups in the gymnasium, power lifting, arc-welding, being close to home induction cooktops will always be a problem 10.Arm sling is only a reminder not to raise the arm above the head. You do not need to keep the arm completely immobilized. You are free to move the arm and use it for normal activities. In case of any problems, Please call [facility], Dimple Metzger @ [phone] Attention: Device Clinic
[2023-02-16] MEDS ORDERED: atenoloL 50 MG TAB PO SCH (14:45)
[2023-02-17] MEDS ORDERED: atenoloL 50 MG TAB PO SCH (09:00)
== END 2023-02-16 15:07 | disposition home or self-care (01) | DRG 243 ==
LOC: CATHEP 09:31 → 2SICU 18:24 → 3SCARD 02-16 06:30
PROVIDERS: ADMIT Internal Medicine; ATTEND Internal Medicine
PROC: 02HK3JZ Insertion of Pacemaker Lead into Right Ventricle, Percutaneous Approach (ICD-10-PCS; principal; 2023-02-14 12:00)
PROC: 02H63JZ Insertion of Pacemaker Lead into Right Atrium, Percutaneous Approach (ICD-10-PCS; principal; 2023-02-14 12:00)
PROC: 0W9D30Z Drainage of Pericardial Cavity with Drainage Device, Percutaneous Approach (ICD-10-PCS; principal; 2023-02-14 12:00)
PROC: 0JH606Z Insertion of Pacemaker, Dual Chamber into Chest Subcutaneous Tissue and Fascia, Open Approach (ICD-10-PCS; principal; 2023-02-14 12:00)
DX: I97.88 Other intraoperative complications of the circulatory system, not elsewhere classified (principal); E87.20 Acidosis, unspecified; I31.4 Cardiac tamponade; I31.39 Other pericardial effusion (noninflammatory); I49.5 Sick sinus syndrome; I95.9 Hypotension, unspecified; I48.0 Paroxysmal atrial fibrillation; E78.2 Mixed hyperlipidemia; I10 Essential (primary) hypertension; I08.0 Rheumatic disorders of both mitral and aortic valves; D72.829 Elevated white blood cell count, unspecified; Z79.01 Long term (current) use of anticoagulants; Z79.899 Other long term (current) drug therapy; Z87.891 Personal history of nicotine dependence; Z86.73 Personal history of transient ischemic attack (TIA), and cerebral infarction without residual deficits; Z87.440 Personal history of urinary (tract) infections; Y83.8 Other surgical procedures as the cause of abnormal reaction of the patient, or of later complication, without mention of misadventure at the time of the procedure; Y92.234 Operating room of hospital as the place of occurrence of the external cause
CPT/HCPCS: 33208; 71045; 80048; 80053; 82533; 83605; 83735; 83880; 84484; 85025; 85027; 86850; 86900; 86901; 93308

== ENCOUNTER 2023-03-22 05:55 | Emergency (ER) | payer MEDICARE ==
--- NOTE | 2023-03-22 06:23 | ED ---
General Adult HPI - General Chief complaint: Shortness of Breath Stated complaint: Hypertension, trouble breathing Time Seen by Provider: 03/22/23 05:59 Source: patient, EMS, RN notes reviewed Mode of arrival: EMS Limitations: no limitations - History of Present Illness Initial comments: 82-year-old female presents emergency department chief complaint of shortness of breath. Patient presenting by EMS. She states she does feel improved at this time. Patient states that she had pacemaker recently. Patient states that she had a follow-up appointment and states that she was found to still be in A-fib. Patient states she is on atenolol and she started amiodarone last night. Patient states that she has had no significant congestion but states that she did have a cough. Denies any leg pain or leg swelling. Patient is currently on anticoagulants. Patient states she did have some complications during her pacemaker in which she states all seem to resolve and was feeling well. She states that she feels very weak when she is in A-fib. Patient states she is unsure she will is. Patient states she had a pacemaker placed because she had Holter monitor showing multiple pauses. - Related Data Home Medications Medication Instructions Recorded Confirmed ALPRAZolam [Xanax] 2 mg PO HS 11/15/21 02/14/23 Acetaminophen [Tylenol Extra 500 - 1,000 mg PO Q6H PRN 11/15/21 02/14/23 Strength] Ascorbic Acid [Vitamin C] 1,000 mg PO DAILY 11/15/21 02/14/23 Calcium Carbonate [Calcium] 1,200 mg PO DAILY 11/15/21 02/14/23 Cholecalciferol [Vitamin D3 (25 100 mcg PO DAILY 11/15/21 02/14/23 Mcg = 1000 Iu)] Cyanocobalamin (Vitamin B-12) 1,000 mcg PO DAILY 11/15/21 02/14/23 [Vitamin B-12] Mirabegron [Myrbetriq] 50 mg PO HS 11/15/21 02/14/23 Pravastatin Sodium [Pravachol] 10 mg PO HS 11/15/21 02/14/23 Vitamin E (Dl,Tocopheryl Acet) 400 unit PO DAILY 11/15/21 02/14/23 [Vitamin E (400 Iu = 180 mg)] Previous Rx's Medication Instructions Recorded Hyoscyamine Elixir [Levsin 10 ml PO Q6H PRN ml 02/16/23 0.125MG/ML Drops] atenoloL [Tenormin] 100 mg PO QAM #90 tab 02/16/23 Allergies Allergy/AdvReac Type Severity Reaction Status Date / Time adhesive tape Allergy tears Verified 02/08/23 15:25 skin-Please use paper tape Review of Systems ROS Statement: Those systems with pertinent positive or pertinent negative responses have been documented in the HPI. ROS Other: All systems not noted in ROS Statement are negative. Past Medical History Past Medical History: Cancer, CVA/TIA, Hyperlipidemia, Hypertension, Osteoarthritis (OA) Additional Past Medical History / Comment(s): hx CVA/TIA 2017-NO RESIDUAL,breast CA-radiation, bilat. cataract removal, heart monitor x 2 weeks History of Any Multi-Drug Resistant Organisms: None Reported, C-DIFF Date of last positivie culture/infection: 2014 MDRO Source:: stool Past Surgical History: Breast Surgery, Orthopedic Surgery Additional Past Surgical History / Comment(s): Lt. breast lumpectomy, Lt. mastectomy, Lt. knee arthrosopy Past Anesthesia/Blood Transfusion Reactions: No Reported Reaction Additional Past Anesthesia/Blood Transfusion Reaction / Comment(s): no hx blood transfusion Past Psychological History: No Psychological Hx Reported Smoking Status: Never smoker Past Alcohol Use History: None Reported Past Drug Use History: None Reported - Past Family History Mother Family Medical History: Dementia Additional Family Medical History / Comment(s): age 97 Father Family Medical History: Cancer Additional Family Medical History / Comment(s): lung General Exam Limitations: no limitations General appearance: alert, in no apparent distress Head exam: Present: atraumatic, normocephalic, normal inspection Eye exam: Present: normal appearance, PERRL, EOMI. Absent: scleral icterus, conjunctival injection, periorbital swelling ENT exam: Present: normal exam, mucous membranes moist Neck exam: Present: normal inspection, full ROM. Absent: tenderness, meningismus, lymphadenopathy Respiratory exam: Present: normal lung sounds bilaterally. Absent: respiratory distress, wheezes, rales, rhonchi, stridor Cardiovascular Exam: Present: regular rate, normal rhythm, normal heart sounds. Absent: systolic murmur, diastolic murmur, rubs, gallop, clicks GI/Abdominal exam: Present: soft, normal bowel sounds. Absent: distended, tenderness, guarding, rebound, rigid Course Vital Signs 03/22/23 03/22/23 03/22/23 05:58 06:56 08:07 Temperature 98.0 F 98.6 F Pulse Rate 74 68 81 Respiratory 18 16 16 Rate Blood Pressure 164/72 167/86 149/68 O2 Sat by Pulse 96 100 94 L Oximetry EKG Findings - EKG Comments: EKG Findings:: EKG performed at 6: 08 sinus rhythm with a rate of 72 MT 199 QRS 144 QT/QTc 432/456 - EKG Results: EKG: interpreted by CAROL Medical Decision Making - Medical Decision Making Was pt. sent in by a medical professional or institution (, PA, CONSTRUCTION ENGINEER, urgent care, hospital, or alf...) When possible be specific @ -No Did you speak to anyone other than the patient for history (EMS, parent, family, police, friend...)? What history was obtained from this source @ -No Did you review nursing and triage notes (agree or disagree)? Why? @ -I reviewed and agree with nursing and triage notes Were old charts reviewed (outside hosp., previous admission, EMS record, old EKG, old radiological studies, urgent care reports/EKG's, alf records)? Report findings @ -[Reviewed recent admission, laboratory studies Differential Diagnosis (chest pain, altered mental status, abdominal pain women, abdominal pain men, vaginal bleeding, weakness, fever, dyspnea, syncope, headache, dizziness, GI bleed, back pain, seizure, CVA, palpatations, mental health, musculoskeletal)? @ -Differential Dyspnea: Coronary syndrome, arrhythmia, tamponade, asthma, COPD, pulmonary embolism, pneumonia, pneumothorax, pulmonary effusion, anaphylaxis, diabetic ketoacidosis, flailed chest, pulmonary contusion, diaphragmatic rupture, anemia, neuromuscular, this is not meant to be an all-inclusive list. EKG interpreted by me (3pts min.). @ -[As above X-rays interpreted by me (1pt min.). @ -[Chest x-ray shows mild pulmonary edema CT interpreted by me (1pt min.). @ -None done U/S interpreted by me (1pt. min.). @ -None done What testing was considered but not performed or refused? (CT, X-rays, U/S, labs)? Why? @ -None What meds were considered but not given or refused? Why? @ -None Did you discuss the management of the patient with other professionals (professionals i.e. , PA, CONSTRUCTION ENGINEER, lab, RT, psych nurse, high school social studies tutor, shoveler, teacher, precinct commanding officer, manager of case)? Give summary @ -No Was smoking cessation discussed for >3mins.? @ -No Was critical care preformed (if so, how long)? @ -No Were there social determinants of health that impacted care today? How? (Homelessness, low income, unemployed, alcoholism, drug addiction, transportation, low edu. Level, literacy, decrease access to med. care, shelter, rehab)? @ -No Was there de-escalation of care discussed even if they declined (Discuss DNR or withdrawal of care, Hospice)? DNR status @ -No What co-morbidities impacted this encounter? (DM, HTN, Smoking, COPD, CAD, Cancer, CVA, ARF, Chemo, Hep., AIDS, mental health diagnosis, sleep apnea, morbid obesity)? @ -None Was patient admitted / discharged? Hospital course, mention meds given and route, prescriptions, significant lab abnormalities, going to OR and other pertinent info. @ -[Discharge patient feels greatly improved this time she is currently asymptomatic she is able to ambulate with no difficulty. Patient was given a dose of Lasix for her pulmonary edema. She will follow-up with PCP and cardiology. We did discuss return parameters. Undiagnosed new problem with uncertain prognosis? @ -No Drug Therapy requiring intensive monitoring for toxicity (Heparin, Nitro, Insulin, Cardizem)? @ -No Were any procedures done? @ -No Diagnosis/symptom? @ -[Dyspnea, pulmonary edema mild Acute, or Chronic, or Acute on Chronic? @ -Acute Uncomplicated (without systemic symptoms) or Complicated (systemic symptoms)? @ -[complicated Side effects of treatment? @ -[No Exacerbation, Progression, or Severe Exacerbation? @ -No Poses a threat to life or bodily function? How? (Chest pain, [place], CO, pneumonia, PE, COPD, DKA, ARF, appy, cholecystitis, CVA, Diverticulitis, Homicidal, Suicidal, threat to staff... and all critical care pts) @ -No - Lab Data Result diagrams: 03/22/23 06:19 03/22/23 06:19 Lab Results 03/22/23 03/22/23 03/22/23 Range/Units 06:19 06:19 06:19 WBC 11.7 H (3.8-10.6) k/uL RBC 4.76 (3.80-5.40) m/uL Hgb 14.4 (11.4-16.0) gm/dL Hct 41.9 (34.0-46.0) % MCV 88.1 (80.0-100.0) fL MCH 30.4 (25.0-35.0) pg MCHC 34.5 (31.0-37.0) g/dL RDW 13.1 (11.5-15.5) % Plt Count 156 (150-450) k/uL MPV 7.9 Neutrophils % 92 % Lymphocytes % 4 % Monocytes % 2 % Eosinophils % 2 % Basophils % 0 % Neutrophils # 10.8 H (1.3-7.7) k/uL Lymphocytes # 0.5 L (1.0-4.8) k/uL Monocytes # 0.2 (0-1.0) k/uL Eosinophils # 0.2 (0-0.7) k/uL Basophils # 0.0 (0-0.2) k/uL PT 10.7 (10.0-12.5) sec INR 1.0 (<1.2) APTT 34.1 H (22.0-30.0) sec Sodium 140 (137-145) mmol/L Potassium 3.9 (3.5-5.1) mmol/L Chloride 107 (98-107) mmol/L Carbon Dioxide 27 (22-30) mmol/L Anion Gap 6 mmol/L BUN 15 (7-17) mg/dL Creatinine 0.68 (0.52-1.04) mg/dL Est GFR (CKD-EPI)AfAm >90 (>60 ml/min/1.73 sqM) Est GFR (CKD-EPI)NonAf 82 (>60 ml/min/1.73 sqM) Glucose 119 H (74-99) mg/dL Calcium 9.0 (8.4-10.2) mg/dL Magnesium 1.6 (1.6-2.3) mg/dL Total Bilirubin 1.0 (0.2-1.3) mg/dL AST 25 (14-36) U/L ALT 18 (4-34) U/L Alkaline Phosphatase 66 (38-126) U/L Troponin I (0.000-0.034) ng/mL NT-Pro-B Natriuret Pep 752 pg/mL Total Protein 6.5 (6.3-8.2) g/dL Albumin 4.0 (3.5-5.0) g/dL Influenza Type A (PCR) (Not Detectd) Influenza Type B (PCR) (Not Detectd) RSV (PCR) (Not Detectd) SARS-CoV-2 (PCR) (Not Detectd) 03/22/23 03/22/23 Range/Units 06:19 06:19 WBC (3.8-10.6) k/uL RBC (3.80-5.40) m/uL Hgb (11.4-16.0) gm/dL Hct (34.0-46.0) % MCV (80.0-100.0) fL MCH (25.0-35.0) pg MCHC (31.0-37.0) g/dL RDW (11.5-15.5) % Plt Count (150-450) k/uL MPV Neutrophils % % Lymphocytes % % Monocytes % % Eosinophils % % Basophils % % Neutrophils # (1.3-7.7) k/uL Lymphocytes # (1.0-4.8) k/uL Monocytes # (0-1.0) k/uL Eosinophils # (0-0.7) k/uL Basophils # (0-0.2) k/uL PT (10.0-12.5) sec INR (<1.2) APTT (22.0-30.0) sec Sodium (137-145) mmol/L Potassium (3.5-5.1) mmol/L Chloride (98-107) mmol/L Carbon Dioxide (22-30) mmol/L Anion Gap mmol/L BUN (7-17) mg/dL Creatinine (0.52-1.04) mg/dL Est GFR (CKD-EPI)AfAm (>60 ml/min/1.73 sqM) Est GFR (CKD-EPI)NonAf (>60 ml/min/1.73 sqM) Glucose (74-99) mg/dL Calcium (8.4-10.2) mg/dL Magnesium (1.6-2.3) mg/dL Total Bilirubin (0.2-1.3) mg/dL AST (14-36) U/L ALT (4-34) U/L Alkaline Phosphatase (38-126) U/L Troponin I <0.012 (0.000-0.034) ng/mL NT-Pro-B Natriuret Pep pg/mL Total Protein (6.3-8.2) g/dL Albumin (3.5-5.0) g/dL Influenza Type A (PCR) Not Detected (Not Detectd) Influenza Type B (PCR) Not Detected (Not Detectd) RSV (PCR) Not Detected (Not Detectd) SARS-CoV-2 (PCR) Not Detected (Not Detectd) Disposition Clinical Impression: Dyspnea, Pulmonary edema Disposition: HOME SELF-CARE Condition: Stable Instructions (If sedation given, give patient instructions): Pulmonary Edema (ED) Additional Instructions: Please return to the Emergency Department if symptoms worsen or any other concerns. Is patient prescribed a controlled substance at d/c from ED?: No Referrals: Cuba Carrizales MD [Primary Care Provider] - 1-2 days Time of Disposition: 08:54
[2023-03-22 06:32] LABS: Basophils % (A) 0 %; Eosinophils # (A) 0.2 k/uL (0-0.7); Eosinophils % (A) 2 %; HCT 41.9 % (34.0-46.0); HGB 14.4 gm/dL (11.4-16.0); Lymphocytes # (A) 0.5 k/uL (1.0-4.8); Lymphocytes % (A) 4 %; MCH 30.4 pg (25.0-35.0); MCHC 34.5 g/dL (31.0-37.0); MCV 88.1 fL (80.0-100.0); Mean Platelet Volume 7.9; Monocytes # (A) 0.2 k/uL (0-1.0); Monocytes % (A) 2 %; Neutrophils # (A) 10.8 k/uL (1.3-7.7); Neutrophils % (A) 92 %; Platelet Count 156 k/uL (150-450); RBC 4.76 m/uL (3.80-5.40); RDW 13.1 % (11.5-15.5); WBC 11.7 k/uL (3.8-10.6)
[2023-03-22 06:38] LABS: Partial Thromboplastin Time 34.1 sec (22.0-30.0); Prothrombin Time 10.7 sec (10.0-12.5)
--- NOTE | 2023-03-22 06:43 | XR ---
EXAMINATION TYPE: XR chest 2V DATE OF EXAM: 03/22/2023 COMPARISON: Chest x-ray February 14, 2023 HISTORY: Difficulty in breathing TECHNIQUE: Frontal and lateral views of the chest are obtained. FINDINGS: There is persistent mild cardiomegaly with dual lead right-sided pacemaker. There is mil d central vascular congestion on current study. No new suspicious focal airspace opacity or pneumotho rax is seen bilaterally. The osseous structures are intact. IMPRESSION: Findings suggest possible CHF exacerbation and there is cardiomegaly with new central va scular congestion thought Present.
[2023-03-22 06:48] LABS: ALT 18 U/L (4-34); AST 25 U/L (14-36); African American GFR (CKD) >90 (>60 ml/min/1.73 sqM); Alkaline Phosphatase 66 U/L (38-126); Anion Gap 6 mmol/L; Blood Urea Nitrogen 15 mg/dL (7-17); Carbon Dioxide 27 mmol/L (22-30); Chloride 107 mmol/L (98-107); Glucose 119 mg/dL (74-99); Magnesium 1.6 mg/dL (1.6-2.3); Non-African American GFR(CKD) 82 (>60 ml/min/1.73 sqM); Potassium 3.9 mmol/L (3.5-5.1); Sodium 140 mmol/L (137-145); Total Protein 6.5 g/dL (6.3-8.2)
[2023-03-22 06:57] LABS: NT-Pro-B-Type Natriuretic Pept 752 pg/mL
[2023-03-22] MEDS ORDERED: FUROSEMIDE 10 MG/ML 2 ML VIAL IV ONE (07:36)
[2023-03-22] MEDS ORDERED: ACETAMINOPHEN TAB 325 MG TAB PO STA (08:32)
[2023-03-22 09:13] VITALS: TEMP 98.6
[2023-03-22 10:12] VITALS: BP 145/70; PULSE 75; RESP 14
== END 2023-03-22 09:54 | disposition home or self-care (01) ==
LOC: EC 05:55
DX: J81.1 Chronic pulmonary edema (principal); R06.00 Dyspnea, unspecified; I45.10 Unspecified right bundle-branch block; I10 Essential (primary) hypertension; M19.90 Unspecified osteoarthritis, unspecified site; E78.5 Hyperlipidemia, unspecified; Z79.1 Long term (current) use of non-steroidal anti-inflammatories (NSAID); Z79.899 Other long term (current) drug therapy; Z91.09 Other allergy status, other than to drugs and biological substances; Z20.822 Contact with and (suspected) exposure to COVID-19
CPT/HCPCS: 36415; 93005; 83880; 80053; 83735; 84484; 85025; 85610; 85730; 87636; 71046; 99285; 96374; J1940